=== PATIENT | female | born 1985 | race Caucasian/White ===

== ENCOUNTER 2017-01-28 11:45 | Emergency (ER) | payer OTHER ==
[~2017-01-28] VITALS: Ht 165.1 cm; Wt 68.0 kg
[~2017-01-28 11:45] MED LIST: ALBUTEROL0.09 MG/A1 INH; DOXYCYCLINE MO100 MG PO; TRAMADOL HCL50 MG PO
--- NOTE | 2017-01-28 12:51 | RADIOLOGY REPORT ---
EXAMINATION: XR CHEST CLINICAL INFORMATION: Cough, fever and chills. COMPARISON: 08/14/2014. TECHNIQUE: 2 views of the chest were obtained. FINDINGS: The lungs are well-inflated and clear. Trachea is midline is position. No evidence of interstitial lung disease, focal consolidation or pleural effusion. The cardiomediastinal silhouette and hilar structures have normal size and contour. The visualized skeleton is normal. The visualized upper abdomen is normal. IMPRESSION: No acute pulmonary disease.
--- NOTE | 2017-01-28 13:15 | ED DYSPNEA/ASTHMA COMPLAINT ---
History of Present Illness General Chief Complaint: General Adult Stated Complaint: SOB, CP Source: patient Exam Limitations: no limitations Vital Signs & Intake/Output Vital Signs & Intake/Output Vital Signs Date Time Temp Pulse Resp B/P Pulse O2 O2 Flow FiO2 Ox Delivery Rate 01/28 1225 Room Air 01/28 1148 98.7 102 18 113/78 99 Room Air Allergies Coded Allergies: MDX - Penicillin V (Severe, "IT WILL KILL ME" 08/14/14) MDX - Erythromycin (Intermediate, GI UPSET 08/14/14) MDX - Sulfamethoxazole (From Septra) (Intermediate, GI UPSET 08/14/14) MDX - Trimethoprim (From Junra) (Intermediate, GI UPSET 08/14/14) Reconcile Medications Albuterol Sulfate (Albuterol Sulfate Hfa) 8.5 GM HFA.AER.AD 2 PUFF INH Q4-6 PRN PRN SHORTNESS OF BREATH 90 MCG PER PUFF DOXYCYCLINE MONOHYDRATE (Doxycycline Monohydrate) 100 MG CAPSULE 1 CAP PO AD BRONCHITIS 1 TAB BID X ONE DAY 1 TAB ONCE DAY X 9 DAYS TRAMADOL HCL (Tramadol HCl) 50 MG TABLET 1 TAB PO DAILY PAIN (Reported) Triage Note: 31 Y/O FEMALE C/O "HEAVINESS" TO CHEST, ONSET THIS AM. STATES SHE BEGAN WITH A "COLD" AND THEN WOKE TODAY WITH CHEST PAIN/HEAVINESS. PT FEELS SOB. DENIES OTHER COMPLAINTS. TAKEN FOR EKG Triage Nurses Notes Reviewed? yes : No Patient currently breastfeeds: No HPI: Ms. Martínez is a 31 yo f w/ asthma and diabetes presenting to the emergency department for chest heaviness and shortness of breath. Patient states she had a cold last week which has since resolved. She does have a cough productive of white sputum without any blood. She endorses subjective fever and chills. Afebrile here. Patient states she has chest pain and heaviness when she coughs. Patient denies any recent travel or prolonged immobilization. Patient also denies any exogenous estrogen use or recent surgeries. No leg swelling. Shortness of breath is not exertional. (RUBINA RATLIFF,ORALIA) Past History Travel History Traveled to [place] past 21 day No Medical History Any Pertinent Medical History? 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 No (ORALIA CESPEDES MD) Review of Systems Review of Systems Constitutional: Reports: see HPI, chills. All Other Systems: Reviewed and Negative (ORALIA CESPEDES MD) Physical Exam Physical Exam General Appearance: well developed/nourished, no apparent distress, alert, awake Head: atraumatic, normal appearance Eyes: Bilateral: normal appearance, PERRL, EOMI. Ears, Nose, Throat: normal pharynx, normal ENT inspection, hearing grossly normal Neck: normal inspection, supple, full range of motion Respiratory: normal breath sounds, chest non-tender, no respiratory distress Cardiovascular: regular rate/rhythm Gastrointestinal: normal bowel sounds, soft, non-tender Rectal: deferred Extremities: normal inspection, normal capillary refill, normal range of motion, no edema Neurologic/Psych: no motor/sensory deficits, awake, alert, oriented x 3 Skin: intact, normal color, warm/dry Core Measures ACS in differential dx? No Severe Sepsis Present: No Septic Shock Present: No (ORALIA CESPEDES MD) Progress Differential Diagnosis: asthma, bronchitis, pulmonary embolism, pneumonia, pneumothorax Plan of Care: Orders Procedure Date/time Status EKG 01/28 1146 Active 31-year-old female presenting to the ED with cough and cold-like symptoms. She is generally well-appearing. Her vitals are within normal limits and she is afebrile here. Initial EKG is within normal limits. Plan to obtain chest x-ray to assess for possible pneumonia however that is unlikely as this patient's lung exam is otherwise unremarkable. No signs of pneumonia on chest x-ray. EKG is nonischemic. Again patient is afebrile and does not have any hypoxia here today. Unlikely PE as she is perked negative. Possible bronchitis however do not feel that antibiotics would improve her symptoms as this is been going on for several days. Patient is given return precautions and told to follow-up with her primary care doctor. Otherwise she can return here to the emergency department if her symptoms significantly worsen. (ORALIA CESPEDES MD) Diagnostic Imaging: Viewed by Me: Radiology Read. Discussed w/RAD: Radiology Read. CXR Impression: no acute abnormality, no infiltrates, normal size heart, normal mediastinum Initial ED EKG: normal axis, normal intervals, normal p-waves, normal QRS complex, normal sinus rhythm, QRS, no ST T wave changes (flipped T-wave in lead III) (ORALIA CESPEDES MD) Departure Departure Time of Disposition: 1338 Disposition: HOME OR SELF CARE Condition: Stable Clinical Impression Primary Impression: Viral URI with cough Referrals: PATIENT HAS NO PRIMARY CARE DR (PCP/Family) Additional Instructions: Please use Tylenol and Motrin for the subjective fevers and chills at home. He can also use [id number] cough medicine to help relieve the cough. It may be helpful to use humidified air such as sitting in the bathroom with the shower head on hot water using a tablespoon of honey approximately 20-30 minutes before bed to help ease her throat and decrease cough. Is also important to stop smoking as this will be best way to allow your lungs to improve. Departure Forms: Customer Survey General Discharge Information (ORALIA CESPEDES MD) PA/EMBOSSING CLERK Co-Sign Statement Statement: ED Attending supervision documentation- [] I saw and evaluated the patient. I have also reviewed all the pertinent lab results and diagnostic results. I agree with the findings and the plan of care as documented in the PA's/EMBOSSING CLERK's documentation. [X] I have reviewed the ED Record and agree with the PA's/EMBOSSING CLERK's documentation. [] Additions or exceptions (if any) to the PAs/EMBOSSING CLERK's note and plan are summarized below: [] (ANGELINA HUMPHRIES DO) Critical Care Note Critical Care Note Critical Care Time: non-applicable (ORALIA CESPEDES MD)
[2017-01-28 13:45] VITALS: BP 128/76
== END 2017-01-28 13:46 ==
LOC: ERH 11:45
DX: R07.89 Other chest pain (principal); J06.9 Acute upper respiratory infection, unspecified
CPT/HCPCS: 93005; 93010